=== PATIENT | female | born 1980 | race Caucasian/White ===

== ENCOUNTER 2016-07-09 17:05 | Outpatient (CLI) | payer MEDICAID ==
--- NOTE | 2016-07-10 11:10 | Ultrasound Report ---
PELVIC ULTRASOUND: 07/09/2016 CLINICAL INDICATION: Irregular cycles, cramping, IUD. COMPARISON: 10/28/2012 TECHNIQUE: Transabdominal pelvic ultrasound performed for global evaluation. Transvaginal pelvic ul trasound performed for detailed evaluation. Real-time scanning performed and static images obtained. FINDINGS: The uterus is anteverted, measuring 8.6 x 5.0 x 4.0 cm. The endometrial echo complex yuridia ures 5 mm. An IUD is noted in the endometrial canal. There are two leiomyomas present, fundal subse jojo measuring 2.0 x 1.5 x 0.9 cm, and right posterior subserosal measuring 1.0 x 0.9 x 0.6 cm. No submucosal leiomyoma is seen. The right ovary measures 2.5 x 2.3 x 1.4 cm, and appears unremarkable. The left ovary measures 3.8 x 2.4 x 1.6 cm, and contains a 2.1 cm cyst. No free fluid is present. IMPRESSION: SUBSEROSAL LEIOMYOMAS, WITHOUT PEDUNCULATION. IUD IN THE EXPECTED LOCATION. A 2.1 CM F OLLICLE IN THE LEFT OVARY. JOB #: [id number] EXT JOB #:[id number]
== END 2016-07-09 17:06 | disposition home or self-care (01) ==
LOC: DI 17:05
PROVIDERS: ATTEND Nurse Practitioner Obstetrics & Gynecology
DX: D25.2 Subserosal leiomyoma of uterus (principal); Z97.5 Presence of (intrauterine) contraceptive device
CPT/HCPCS: 76830; 76856

== ENCOUNTER 2016-11-18 09:50 | Outpatient (CLI) | payer MEDICAID ==
[2016-11-18 10:09] LABS: BASOPHILS % (AUTO) 0.6 %; EOSINOPHILS # (AUTO) 0.2 10^3/uL (0.0-0.7); EOSINOPHILS % (AUTO) 2.5 %; HGB - HEMOGLOBIN 13.6 g/dL (12.0-16.0); LYMPHOCYTES # (AUTO) 2.4 10^3/uL (1.5-3.5); LYMPHOCYTES % (AUTO) 32.7 %; MEAN CORPUSCULAR HEMOGLOBIN 33.4 pg (27.0-31.0); MEAN CORPUSCULAR HGB CONC 34.1 g/dL (32.0-36.0); MEAN CORPUSCULAR VOLUME 98.1 fL (81.0-99.0); MONOCYTES # (AUTO) 0.9 10^3/uL (0.0-1.0); MONOCYTES % (AUTO) 12.1 %; NEUTROPHILS # (AUTO) 3.8 10^3/uL (1.5-6.6); NEUTROPHILS % (AUTO) 52.1 %; RED BLOOD COUNT 4.08 10^6/uL (4.20-5.40); UNCORRECTED WHITE BLOOD COUNT 7.4 x10^3/uL; WHITE BLOOD COUNT 7.4 x10^3/uL (4.8-10.8)
[2016-11-18 10:43] LABS: ALBUMIN/GLOBULIN RATIO 1.4 (1.0-2.2); BILIRUBIN,TOTAL 0.7 mg/dL (0.2-1.0); BUN - BLOOD UREA NITROGEN 13 mg/dL (6-20); CALCIUM 9.3 mg/dL (8.5-10.3); CARBON DIOXIDE - CO2 24 mmol/L (21-32); CHLORIDE 102 mmol/L (101-111); CREATININE 0.7 mg/dL (0.4-1.0); GFR - MDRD 94 (>89); GLUCOSE 127 mg/dL (70-100); POTASSIUM 4.4 mmol/L (3.5-5.0); SODIUM 137 mmol/L (135-145); TOTAL PROTEIN 7.5 g/dL (6.7-8.2)
[2016-11-18 10:59] LABS: THYROID STIMULATING HORMONE 1.7 uIU/mL (0.34-5.60)
[2016-11-18 11:05] LABS: PROLACTIN 10.29 ng/mL
== END 2016-11-18 09:51 | disposition home or self-care (01) ==
LOC: LAB 09:50
PROVIDERS: ATTEND Obstetrics & Gynecology
DX: Z13.1 Encounter for screening for diabetes mellitus (principal); R53.83 Other fatigue; D35.2 Benign neoplasm of pituitary gland; N92.1 Excessive and frequent menstruation with irregular cycle
CPT/HCPCS: 36415; 80053; 84146; 84443; 85025

== ENCOUNTER 2016-11-25 11:38 | Outpatient (CLI) | payer OTHER | END 2016-11-25 11:39 | disposition home or self-care (01) | LOC: LAB 11:38 | PROVIDERS: ATTEND Obstetrics & Gynecology | DX: N94.4 Primary dysmenorrhea (principal); N92.6 Irregular menstruation, unspecified | CPT/HCPCS: 36415; 86850; 86900; 86901 ==

== ENCOUNTER 2016-11-27 10:56 | Day surgery (SDC) | payer MEDICAID, OTHER ==
--- NOTE | 2016-11-27 09:17 | PREOP HISTORY & PHYSICAL ---
DATE OF ADMISSION/SURGERY: 11/27/2016 IDENTIFICATION: The patient is a 36-year-old. She is G3, P2, AB1 female. CHIEF COMPLAINT: Menometrorrhagia with dysmenorrhea. HISTORY OF PRESENT ILLNESS: The patient states over the last 3 years she has been having increasing d ifficulty with painful and heavy periods. She has been tried on control pills, Depo-Provera, as well as a Mirena IUD. She states when she has her period she will need to change a pad every 3 hours . She will pass clots accompanying this. She needs to utilize a heating pad and use ibuprofen for her pain. She does have a history of having a mother who has had fibroids in her uterus and she has an u ltrasound, which showed evidence of a fibroid uterus. She does have some mild urge incontinence, whic h is well treated with oxybutynin. She has had a normal Pap smear and she is currently using vasectom y for contraception. PAST MEDICAL HISTORY: Asthma. SURGICAL HISTORY: section. ALLERGIES: NONE KNOWN. CURRENT MEDICATIONS 1. Oxybutynin. 2. Sertraline. 3. Albuterol. HABITS: The patient smokes a pack of cigarettes per day, has been encouraged to cease. She drinks 1-3 cups of coffee per day. She drinks less than 2 glasses of wine per day. SOCIAL HISTORY: The patient is , lives with significant other. She is currently sexually activ e with only 1 partner over the last year. FAMILY HISTORY: Positive for ovarian cancer in maternal grandmother. Father with diabetes, as well as hypercholesterolemia and mother with endometriosis. PHYSICAL EXAMINATION GENERAL: The patient is a well-developed, well-nourished white female. She is no acute distress at t his time. VITAL SIGNS: Blood pressure 122/82, BMI is 25.4. HEENT: Pupils are equal, round. Extraocular muscles are intact. NECK: Thyroid is not palpably enlarged. HEART: Regular rate and rhythm without murmurs. LUNGS: Wong are clear with wheezes secondary to her asthma. ABDOMEN: Soft with evidence of a Pfannenstiel incision from previous section. PELVIC: Normal external genitalia. Vaginal vault shows evidence of good rugation and no obvious cysto ernie or rectoceles at this time. Cervix appears to reside high in the vaginal vault. Internal examina tion uterus is difficult to palpate secondary to abdominal wall thickness. IMPRESSION: Menometrorrhagia with dysmenorrhea. She has failed conservative measures which include bi rth control pills, Depo-Provera, as well as Mirena IUD. PLAN: At this point, she is requesting a hysterectomy. She is aware that should her uterus be removed that she would never be able to have children again and should consider this permanent. Risks and be nefits including those, but not limited to bleeding, infection, injury to pelvic organs, which includ e the uterus, tubes, ovaries, bowel, bladder, and ureters. She is aware of the potential for DVT with PE, as well as postoperative adhesions, which could cause pain, bowel obstruction. JOB #: [id number] EXT JOB #:[id number]
[~2016-11-27 10:56] MED LIST: ceFAZolin 2 GM/50 ML 2 GM/50 ML BAG IV ONE
[2016-11-27 11:17] VITALS: BP 136/88
[2016-11-27] MEDS ORDERED: LACTATED RINGERS 1,000 ML IV ONE ×2 (11:25→16:11)
[2016-11-27 12:46] LABS: HCG UR QUAL NEGATIVE
[2016-11-27] MEDS ORDERED: BUPIVACAINE 0.25%-EPI 1:200000 PF 30 ML VIAL SUBQ ONE ×2 (14:28)
[2016-11-27] MEDS ORDERED: PROPOFOL 200 MG/20 ML VIAL IVP ONE (14:30)
[2016-11-27] MEDS ORDERED: PHENYLEPHRINE 50 MG/5 ML VIAL IV ONE (14:30)
[2016-11-27] MEDS ORDERED: ACETAMINOPHEN 1,000 MG/100 ML 100 ML IV ONE (14:30)
[2016-11-27] MEDS ORDERED: NEOSTIGMINE 1 MG/1 ML 10 ML MDV IVP ONE (14:30)
[2016-11-27] MEDS ORDERED: MIDAZOLAM 2 MG/2 ML VIAL IVP ONE (14:30)
[2016-11-27] MEDS ORDERED: ROCURONIUM 50 MG/5 ML VIAL IVP ONE (14:30)
[2016-11-27] MEDS ORDERED: GLYCOPYRROLATE 1 MG/5 ML VIAL IVP ONE (14:30)
[2016-11-27] MEDS ORDERED: LIDOCAINE-MPF 2% 5 ML VIAL IM ONE (14:30)
[2016-11-27] MEDS ORDERED: fentaNYL 100 MCG/2 ML VIAL IVP ONE (14:30)
[2016-11-27] MEDS ORDERED: KETOROLAC 30 MG/ML VIAL IVP ONE (14:30)
[2016-11-27] MEDS ORDERED: DEXAMETHASONE 4 MG/ML VIAL IVP ONE (14:30)
[2016-11-27] MEDS ORDERED: ONDANSETRON 4 MG/2 ML VIAL IVP ONE (14:30)
[2016-11-27] MEDS ORDERED: METHYLENE BLUE 0.5% 50 MG/10 ML AMPULE IVP ONE (15:10)
[2016-11-27] MEDS ORDERED: BUPIVACAINE 0.25%-EPI 1:200000 PF 10 ML VIAL IM ONE (15:45)
[2016-11-27] MEDS: LORazepam 2 MG/ML SYRINGE ONE ×2 (16:58→17:11)
[2016-11-27] MEDS ORDERED: fentaNYL 100 MCG/2 ML VIAL ONE (17:11)
[2016-11-27] MEDS ORDERED: oxyCODONE 5 MG TABLET ONE (18:29)
[2016-11-27] MEDS ORDERED: NICOTINE 14 MG PATCH TOP ONE (20:39)
[2016-11-27] MEDS ORDERED: ONDANSETRON 4 MG/2 ML VIAL IVP PRN (20:41)
[2016-11-27] MEDS ORDERED: NICOTINE 14 MG PATCH TOP SCH (20:45)
[2016-11-27] MEDS: LACTATED RINGERS 1,000 ML IV SCH (22:20)
[2016-11-27] MEDS: oxyCODONE 5 MG TABLET PO PRN (22:22)
[2016-11-27] MEDS ORDERED: KETOROLAC 30 MG/ML VIAL IVP PRN (22:30)
--- NOTE | 2016-11-28 02:04 | OPERATIVE REPORT ---
DATE OF SURGERY: 11/27/2016 00:00:00 PREOPERATIVE DIAGNOSES: Menorrhagia, metrorrhagia, fibroid uterus. POSTOPERATIVE DIAGNOSIS: Menorrhagia, metrorrhagia, fibroid uterus. PROCEDURE: Laparoscopic-assisted vaginal hysterectomy and bilateral salpingectomy. SURGEON: Harsha Croft MD. OPEN TENTER OPERATOR: Dr. Harsha Holliday. ANESTHESIA: General via endotracheal tube, Pablo Bonilla CRNA. FINDINGS: Large uterus with multiple subserosal fibroids. The tubes appeared to be normal bilaterally as well as the ovaries. ESTIMATED BLOOD LOSS: 100 mL. IV FLUIDS: 1400 mL. PROCEDURE: Following adequate endotracheal anesthesia, the patient was placed in a dorsal lithotomy position in [facility]. She was then prepped and draped in the usual fashion. A timeout was performed, at which time the patient was identified, as well as concerns. The procedure was then commenced. A Mann catheter was placed under sterile condition, a speculum was placed in the vagina , cervix visualized, grasped with single-toothed tenaculum anteriorly and sounded to 8 cm, dilated to a size 8 mm dilator. A Vesicare uterine manipulator was placed in the uterus. The balloon was inflated and then the cups were then pushed up into the fornices of the vagina. 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 Pneumoperitoneum was created. There was no evidence of any injury at the site of insertion. Two ports were placed, both in the left and the right lower quadrants, 5 mm, both under direct visualization following the skin incision as well as local anesthetic. The uterus was visualized, identified and photographs were taken. The right fallopian tube was grasped at its fimbriated end and the mesosalpinx was then cauterized and then divided utilizing the LigaSure. The round ligament was then doubly cauterized and transected. The utero-ovarian ligament was likewise doubly cauterized and then transected. Evidence of good hemostasis was noted. The broad ligament was then cauterized and transected along the lateral aspect of the uterus. This was carried down to about the level of the internal os of the cervix. Then the anterior leaf of the broad ligament was opened and the bladder flap was developed utilizing the LigaSure. Good hemostasis was observed. The uterine vessels on the right hand side were cauterized and transected as well as the posterior peritoneum on the right hand side. The left hand tube was treated in identical fashion. The mesosalpinx was cauterized, transected utilizing LigaSure all the way down to the cornua of the round ligament as well was the utero-ovarian ligament was cauterized and transected. The anterior leaf of the broad ligament was opened, cauterized and transected all the way down to the internal os of the cervix and then connected with the incision on the right hand side. The posterior leaf of the broad ligament was cauterized, transected all the way down to the uterine vessels. These were visualized, doubly cauterized and then transected. The bladder was then pushed off the lower uterine segment and there was evidence of adequate hemostasis at this point. At this point, the attention was turned to the vagina. The VCare was removed from the uterus following deflation of the bulb and the cervix was grasped with a thyroid Fabiola clamp both anterior and posteriorly, and the cervix was circumscribed utilizing electrocautery. The bladder flap was developed and with blunt and sharp dissection, it was freed from the lower uterine segment until the peritoneum was entered. This was identified with peritoneal surfaces. The posterior cul-de-sac was then likewise developed using Webb scissors and then entered and a long billed speculum was placed. The transverse cervical ligament was cross clamped bilaterally, divided and ligated with Blanca stitches of #0 Vicryl. This was carried on the left hand side up to the previous surgical opening from the laparoscopy. There was some bleeding noted on the right hand side. This was treated with [id number]-lyadzb of #0 Vicryl. The left hand side was treated in identical fashion. The uterosacral ligaments were cross clamped, divided using Webb scissors and ligated with Blanca stitches of #0 Vicryl. This was carried up to the incision from the laparoscopic area. The uterus was then removed, and there was evidence of bleeding from the right uterosacral ligament. This was treated with ubcmdo-wj-xyhaid with evidence of good hemostasis and following this, a Kaye suture was placed utilizing 0 Vicryl starting at the posterior vagina on the left hand side included the left transverse cervical ligament traversed high across the cul-de-sac including right uterosacral ligament and then exiting the vagina. The area on the right hand side was inspected and no further bleeding was noted, so the apex of vagina was closed using smhudd-tj-icexee of #0 Vicryl because of her smoking. The Kaye suture was then pulled snug and the vagina was pulled up in the vaginal vault. There was no evidence of any further bleeding. A cystoscopy was performed and there was evidence of good urine flowing from both ureteral orifices. The electric freight car operator's gloves and changed and then the laparoscope was reintroduced, and there was no evidence of any bleeding at the apex of the vagina or the lower portion of the pelvis. The pelvis was irrigated and then the CO2 was allowed to escape. The incisions were closed utilizing subcuticular 4-0 Monocryl with Dermabond closure. The patient tolerated the procedure well, was taken to recovery in stable condition. Sponge and needle counts were correct. JOB #: [id number] EXT JOB #:[id number] CECILLE
[2016-11-28] MEDS: oxyCODONE 5 MG TABLET PO PRN ×2 (03:33→07:47)
[2016-11-28] MEDS: LACTATED RINGERS 1,000 ML IV SCH (08:37)
== END 2016-11-28 09:25 | disposition home or self-care (01) ==
LOC: SDS 10:56 → OBS 16:40 → SDS 11-28 09:25
PROVIDERS: ATTEND Obstetrics & Gynecology
PROC: 0UTC7ZZ Resection of Cervix, Via Natural or Artificial Opening (ICD-10-PCS; 2016-11-27)
PROC: 0UT7FZZ Resection of Bilateral Fallopian Tubes, Via Natural or Artificial Opening With Percutaneous Endoscopic Assistance (ICD-10-PCS; 2016-11-27)
PROC: 0UT9FZZ Resection of Uterus, Via Natural or Artificial Opening With Percutaneous Endoscopic Assistance (ICD-10-PCS; principal; 2016-11-27 12:00)
DX: D25.1 Intramural leiomyoma of uterus (principal); D25.0 Submucous leiomyoma of uterus; D25.2 Subserosal leiomyoma of uterus; J45.909 Unspecified asthma, uncomplicated; F17.210 Nicotine dependence, cigarettes, uncomplicated
CPT/HCPCS: 58554; 81025; A9270; J0131; J0690; J2060; J7120

== ENCOUNTER 2017-01-27 09:33 | Outpatient (CLI) | payer OTHER ==
[~2017-01-27 09:33] MED LIST changes: +GADOBUTROL 7.5 MMOL/7.5 ML VIAL ONE; -ceFAZolin 2 GM/50 ML 2 GM/50 ML BAG IV ONE
[2017-01-27] MEDS ORDERED: GADOBUTROL 7.5 MMOL/7.5 ML VIAL IVP ONE (10:33)
--- NOTE | 2017-01-27 22:12 | MRI Report ---
MRI BRAIN WITHOUT AND WITH CONTRAST INDICATION: 36-year-old female with history of pituitary adenoma. Please assess in follow-up. TECHNIQUE: 1. T1 sagittal and fat-saturated T2 coronal. 2. Axial FLAIR, T2* and DWI. 3. Thin slice, T1 and T2 coronal (sella). 4. 6 mL of IV Gadavist. Dynamic pituitary imaging was performed in the coronal plane. In addition, th in slice, static, postcontrast T1 sagittal and coronal sequences were obtained through the sella. A r outine T1 3-D axial sequence has been obtained through the brain. COMPARISON: 07/22/2011. FINDINGS: Pituitary/sella Best demonstrated on dynamic phase sequence is a region of mildly delayed enhancement in the left lat eral aspect of the pituitary. The margins are ill-defined (see image 24 of series 1101). Grossly this lesion appears to measure about 2.3 mm maximal transverse by roughly 3.8 mm maximal craniocaudad. It is difficult to identify a definite, corresponding abnormality on the static, postcontrast sequences . However, again demonstrated is asymmetry in the contour of the pituitary gland with upward convexit y, laterally on the left, effectively confirming the presence of an intrapituitary mass on the left. The infundibulum is minimally displaced to the right. No invasion of the left cavernous sinus is demo nstrated. No suprasellar mass is seen. The optic chiasm is normal and noncompressed. Brain Ventricular size is normal. Signal intensity of cortex and white matter appears normal. There appear to be flow voids for the main intracranial arteries. No abnormal diffusion restriction is demonstrate d. No evidence of acute or chronic hemorrhage on T2* GRE sequence. No enhancing space-occupying mass lesion. No pathologic meningeal or cranial nerve enhancement. There is normal intravascular contrast enhancement in the dural venous sinuses and deep venous structures. This effectively excludes the pos sibility of venous thrombosis. A mucous retention cyst is identified in the left maxillary sinus. Mucosal thickening is seen scatter ed throughout the maxillary and ethmoid sinuses. No air-fluid levels are seen in the paranasal sinuse s. No mastoid or middle ear effusion. 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 No obvious interval g rowth when compared to previous study 07/22/2011. Imaging of the pituitary and parasellar region is otherwise unremarkable. Referring Provider Line: [phone] SITE ID: [id number]
== END 2017-01-27 09:34 | disposition home or self-care (01) ==
LOC: DI 09:33
PROVIDERS: ATTEND Nurse Practitioner Family
DX: D35.2 Benign neoplasm of pituitary gland (principal)
CPT/HCPCS: 70553; A9585

== ENCOUNTER 2017-09-09 17:05 | Emergency (ER) | payer SELFPAY ==
[2017-09-09 17:24] VITALS: BP 129/89
== END 2017-09-09 18:00 | disposition left against medical advice (07) ==
LOC: ED 17:05
DX: Z53.21 Procedure and treatment not carried out due to patient leaving prior to being seen by health care provider (principal)

== ENCOUNTER 2017-09-11 12:34 | Emergency (ER) | payer SELFPAY ==
[2017-09-11] MEDS ORDERED: HYDROcod/ACETAM 5/325 MG TABLET PO STA (13:35)
--- NOTE | 2017-09-11 13:37 | ED Physician Documentation ---
PD HPI BACK PAIN - Stated complaint Stated Complaint: BACK PX - Chief complaint Chief Complaint: Back Pain - History obtained from History obtained from: Patient - History of Present Illness Timing - onset: Other (She woke up with back pain 2 weeks ago, it is in the left upper thoracic area. It started after a long car trip to [place]. She does not have any shortness of breath with it but she does have mild left anterior chest pain that has been constant in that timeframe. She denies any pedal edema. She denies weakness, numbness, or tingling in the extremities, but does note incontinence, but that is not new since the back pain started and she has seen a urologist for that issue. There is no saddle anesthesia or fevers. She has tried ibuprofen which is modestly effective.) Review of Systems Constitutional: denies: Fever, Chills Cardiac: reports: Chest pain / pressure. 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 - Present Medications Home Medications: Ambulatory Orders Medication Instructions Recorded Confirmed LORazepam [Ativan] 1 mg PO DAILY 12/23/15 11/27/16 Sertraline [Zoloft] 100 mg PO BID 12/23/15 11/27/16 Meclizine HCl [Motion Sickness 25 mg PO DAILY PRN 11/26/16 11/27/16 Relief] Albuterol Sulfate [Proair Hfa 1 inhaler IH DAILY 11/27/16 11/27/16 Inhaler] Oxybutynin [Ditropan] 5 mg PO DAILY 11/27/16 11/27/16 HYDROcod/ACETAM 5/325 [[place] 5/325] 1 - 2 ea PO Q6H PRN #15 tablet 09/11/17 Ibuprofen [Motrin] 800 mg PO Q8H PRN #30 tablet 09/11/17 Lidocaine Patch 5% [Lidoderm Patch] 1 each TOP DAILY #10 patch 09/11/17 - Allergies Allergies/Adverse Reactions: Allergies Allergy/AdvReac Type Severity Reaction Status Date / Time No Known Drug Allergies Allergy Verified 09/11/17 12:45 - Social History Does the pt smoke?: Yes Smoking Status: Current every day smoker Does the pt drink ETOH?: Yes Does the pt have substance abuse?: Yes Substance Use and Type: Marijuana - Immunizations Immunizations are current?: Yes Immunizations: TDAP >10years/unknown - POLST Patient has POLST: No PD ED PE NORMAL - Vitals Vital signs reviewed: Yes - General General: Alert and oriented X 3, No acute distress - HEENT HEENT: PERRL, EOMI - Neck Neck: Supple, no meningeal sign, No bony TTP - Cardiac Cardiac: RRR, No murmur - Respiratory Respiratory: No respiratory distress, Clear bilaterally - Abdomen Abdomen: Non tender - Back Back: No spinal TTP, Other (She is muscular tenderness to the left of the mid and upper thoracic spine, The patient has equal and normal Achilles and patellar reflexes bilaterally. Normal sensation in all areas of the legs. Patient denies saddle anesthesia. Normal strength in flexion-extension at the ankles, knees, and flexion of the hips.) - Neuro Neuro: Alert and oriented X 3, Normal speech Results - Vitals Vitals: Vital Signs - 24 hr 09/11/17 09/11/17 12:41 14:31 Temperature 36 C L 37.6 C H Heart Rate 88 72 Respiratory 18 16 Rate Blood Pressure 138/102 H 132/82 H O2 Saturation 97 97 Oxygen O2 Source Room air - EKG (time done) 1343 Rate: Rate (enter#) (68) Rhythm: NSR [place]: Normal Intervals: Normal [place] QRS: Normal Ischemia: Normal ST segments Computer interpretation: Agree with computer - Labs Labs: Laboratory Tests 09/11/17 09/11/17 09/11/17 14:15 14:15 14:15 WBC 8.7 RBC 4.16 L Hgb 13.8 Hct 39.8 MCV 95.6 MCH 33.2 H MCHC 34.7 RDW 11.9 L Plt Count 292 MPV 7.8 L Neut # (Auto) 5.8 Lymph # (Auto) 2.1 [place] # (Auto) 0.7 Eos # (Auto) 0.1 Baso # (Auto) 0.1 Absolute Nucleated RBC 0.00 Nucleated RBC % 0.0 D-Dimer 279.8 H Sodium 136 Potassium 3.9 Chloride 99 L Carbon Dioxide 26 Anion Gap 11.0 BUN 9 Creatinine 0.7 Estimated GFR (MDRD) 94 Glucose 103 H Calcium 9.2 Total Bilirubin 0.4 AST 31 ALT 33 Alkaline Phosphatase 51 Troponin I Total Protein 7.7 Albumin 4.4 Globulin 3.3 Albumin/Globulin Ratio 1.3 Lipase 29 09/11/17 14:15 WBC RBC Hgb Hct MCV MCH MCHC RDW Plt Count MPV Neut # (Auto) Lymph # (Auto) [place] # (Auto) Eos # (Auto) Baso # (Auto) Absolute Nucleated RBC Nucleated RBC % D-Dimer Sodium Potassium Chloride Carbon Dioxide Anion Gap BUN Creatinine Estimated GFR (MDRD) Glucose Calcium Total Bilirubin AST ALT Alkaline Phosphatase Troponin I < 0.04 Total Protein Albumin Globulin Albumin/Globulin Ratio Lipase - Rads (name of study) 2v chest Radiology: EMP read contemporaneously (normal) PD MEDICAL DECISION MAKING - ED course ED course: 37-year-old woman with 2 weeks of constant back pain that seems muscular on examination, differential would also include core issue including PE given recent car trip, her d-dimer flags is high but most authorities use 500 as a cut off so I consider this to be negative. - Sepsis Event Vital Signs: Vital Signs - 24 hr 09/11/17 09/11/17 12:41 14:31 Temperature 36 C L 37.6 C H Heart Rate 88 72 Respiratory 18 16 Rate Blood Pressure 138/102 H 132/82 H O2 Saturation 97 97 Oxygen O2 Source Room air Departure - Departure Disposition: 01 Home, Self Care Clinical Impression: Back pain Qualifiers: Back pain location: thoracic back pain Chronicity: acute Back pain laterality: left Qualified Code(s): M54.6 - Pain in thoracic spine Condition: Good Record reviewed to determine appropriate education?: Yes Instructions: ED Neck Back Pain General Prescriptions: HYDROcod/ACETAM 5/325 [[place] 5/325] 1 - 2 ea PO Q6H PRN #15 tablet PRN Reason: Pain Ibuprofen [Motrin] 800 mg PO Q8H PRN #30 tablet PRN Reason: PAIN &/OR FEVER Lidocaine Patch 5% [Lidoderm Patch] 1 each TOP DAILY #10 patch Comments: Your blood pressure was elevated today on check into the emergency department. This does not mean that you have hypertension, it is a common phenomenon to come to the emergency department and have elevated blood pressure. I recommend that you see your primary care physician within the week to have it rechecked when you are feeling better. Do not drink or drive while taking narcotic pain medication. Note that many narcotic pain relievers also contain Tylenol/acetaminophen. Please ensure that your total dose of acetaminophen from all sources does not exceed 3 g (3000 mg) per day. You may get constipated while on this medication. Take a stool softener such as Colace twice a day while you are on it. Also add an cucl-zxk-yhycfhf laxative such as senna or MiraLAX on any day that you do not have a bowel movement. If you received a narcotic pain medication or sedative while in the emergency department, do not drive for the next 24 hours. Forms: Activity restrictions
--- NOTE | 2017-09-11 14:09 | XRAY Report ---
Procedure Date: 09/11/2017 Accession Number: [id number] / [id number] Procedure: XR - Chest 2 View X-Ray CPT Code: 21236 FULL RESULT: EXAM: CHEST RADIOGRAPHY EXAM DATE: 09/11/2017 01:57 PM. CLINICAL HISTORY: Chest/back pain. COMPARISON: XR CHEST PA AND LAT 06/17/2011. TECHNIQUE: 2 views. FINDINGS: Lungs/Pleura: No focal opacities evident. No pleural effusion. No pneumothorax. Normal volumes. Mediastinum: Heart and mediastinal contours are unremarkable. Other: No acute osseous abnormality. IMPRESSION: Normal 2-view chest radiography. RADIA
[2017-09-11 14:24] LABS: BASOPHILS # (AUTO) 0.1 10^3/uL (0.0-0.1); EOSINOPHILS # (AUTO) 0.1 10^3/uL (0.0-0.7); EOSINOPHILS % (AUTO) 1.1 %; HGB - HEMOGLOBIN 13.8 g/dL (12.0-16.0); LYMPHOCYTES # (AUTO) 2.1 10^3/uL (1.5-3.5); LYMPHOCYTES % (AUTO) 23.8 %; MEAN CORPUSCULAR HEMOGLOBIN 33.2 pg (27.0-31.0); MEAN CORPUSCULAR HGB CONC 34.7 g/dL (32.0-36.0); MEAN CORPUSCULAR VOLUME 95.6 fL (81.0-99.0); MEAN PLATELET VOLUME 7.8 fL (7.9-10.8); MONOCYTES # (AUTO) 0.7 10^3/uL (0.0-1.0); NEUTROPHILS # (AUTO) 5.8 10^3/uL (1.5-6.6); NEUTROPHILS % (AUTO) 66.1 %; PLT - PLATELET COUNT 292 10^3/uL (130-450); RED BLOOD COUNT 4.16 10^6/uL (4.20-5.40); RED CELL DISTRIBUTION WIDTH 11.9 % (12.0-15.0); WHITE BLOOD COUNT 8.7 x10^3/uL (4.8-10.8)
[2017-09-11 14:32] VITALS: BP 132/82
[2017-09-11 14:36] LABS: ALBUMIN 4.4 g/dL (3.2-5.5); ALBUMIN/GLOBULIN RATIO 1.3 (1.0-2.2); BILIRUBIN,TOTAL 0.4 mg/dL (0.2-1.0); CALCIUM 9.2 mg/dL (8.5-10.3); CREATININE 0.7 mg/dL (0.4-1.0); TOTAL PROTEIN 7.7 g/dL (6.7-8.2)
== END 2017-09-11 14:44 | disposition home or self-care (01) ==
LOC: ED 12:34
DX: M54.6 Pain in thoracic spine (principal); R03.0 Elevated blood-pressure reading, without diagnosis of hypertension; F17.200 Nicotine dependence, unspecified, uncomplicated
CPT/HCPCS: 36415; 71046; 80053; 83690; 84484; 85025; 85379; 93005; 99283; A9270

== ENCOUNTER 2017-11-26 02:15 | Emergency (ER) | payer SELFPAY ==
[2017-11-26 02:44] LABS: BASOPHILS # (AUTO) 0.1 10^3/uL (0.0-0.1); BASOPHILS % (AUTO) 0.9 %; EOSINOPHILS # (AUTO) 0.3 10^3/uL (0.0-0.7); HGB - HEMOGLOBIN 15.8 g/dL (12.0-16.0); LYMPHOCYTES # (AUTO) 4.5 10^3/uL (1.5-3.5); LYMPHOCYTES % (AUTO) 45.6 %; MEAN CORPUSCULAR HGB CONC 34.2 g/dL (32.0-36.0); MEAN CORPUSCULAR VOLUME 96.6 fL (81.0-99.0); MEAN PLATELET VOLUME 8.2 fL (7.9-10.8); MONOCYTES # (AUTO) 0.9 10^3/uL (0.0-1.0); MONOCYTES % (AUTO) 8.6 %; NEUTROPHILS # (AUTO) 4.2 10^3/uL (1.5-6.6); NEUTROPHILS % (AUTO) 41.9 %; PLT - PLATELET COUNT 342 10^3/uL (130-450); RED BLOOD COUNT 4.79 10^6/uL (4.20-5.40); RED CELL DISTRIBUTION WIDTH 12.2 % (12.0-15.0); WHITE BLOOD COUNT 9.9 x10^3/uL (4.8-10.8)
[2017-11-26 02:45] LABS: MUDS CUTOFF CONCENTRATIONS CUTOFF CONC BELOW:
--- NOTE | 2017-11-26 02:50 | ED Physician Documentation ---
PD HPI OVERDOSE - Stated complaint Stated Complaint: POSS OVERDOSE - Chief complaint Chief Complaint: MHE - History obtained from History obtained from: Patient - History of Present Illness Timing - onset: Enter time (23:00), Today Subtance(s) ingested: EtOH, Antidepressent Contributing factors: Depresssed Pain level max: 0 Pain level now: 0 Recently seen: Not recently seen - Additional information Additional information: patient had argument with her daugher (phone conversation, not in person), causing patient to feel depressed. Patient drank alcohol and then took approximately 60 tablets (100mg tablets) of zoloft at approximately 23:00. Review of Systems Cardiac: reports: Reviewed and negative Respiratory: reports: Reviewed and negative GI: reports: Reviewed and negative Neurologic: reports: Reviewed and negative Psychiatric: reports: Depressed. denies: Suicidal (patient admits she took the overdose with intent of self-harm but denies true suicidal intent) PD PAST MEDICAL HISTORY - Past Medical History Respiratory: Pneumonia Psych: Depression - Past Surgical History Past Surgical History: Yes /[employer]: section, Hysterectomy - Present Medications Home Medications: Ambulatory Orders Medication Instructions Recorded Confirmed LORazepam [Ativan] 1 mg PO DAILY 12/23/15 11/27/16 Sertraline [Zoloft] 100 mg PO BID 12/23/15 11/27/16 Meclizine HCl [Motion Sickness 25 mg PO DAILY PRN 11/26/16 11/27/16 Relief] Albuterol Sulfate [Proair Hfa 1 inhaler IH DAILY 11/27/16 11/27/16 Inhaler] Oxybutynin [Ditropan] 5 mg PO DAILY 11/27/16 11/27/16 HYDROcod/ACETAM 5/325 [[place] 5/325] 1 - 2 ea PO Q6H PRN #15 tablet 09/11/17 Ibuprofen [Motrin] 800 mg PO Q8H PRN #30 tablet 09/11/17 Lidocaine Patch 5% [Lidoderm Patch] 1 each TOP DAILY #10 patch 09/11/17 - Allergies Allergies/Adverse Reactions: Allergies Allergy/AdvReac Type Severity Reaction Status Date / Time No Known Drug Allergies Allergy Verified 09/11/17 12:45 - Social History Does the pt smoke?: Yes Smoking Status: Current every day smoker Does the pt drink ETOH?: Yes Does the pt have substance abuse?: Yes - Immunizations Immunizations are current?: Yes Immunizations: TDAP >10years/unknown - POLST Patient has POLST: No PD ED PE NORMAL - Vitals Vital signs reviewed: Yes - General General: Alert and oriented X 3, Well developed/nourished, Other (tearful during H+P but otherwise no NAD) - HEENT HEENT: PERRL, EOMI, Moist mucous membranes - Cardiac Cardiac: RRR, No murmur - Respiratory Respiratory: No respiratory distress, Clear bilaterally - Abdomen Abdomen: Normal bowel sounds, Soft, Non tender - Derm Derm: Normal color, Warm and dry - Neuro Neuro: Alert and oriented X 3, 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, No motor deficit, No sensory deficit, Normal speech Eye Opening: Spontaneous Motor: Obeys Commands Verbal: Oriented GCS Score: 15 Results - Vitals Vitals: Vital Signs - 24 hr 11/26/17 11/26/17 11/26/17 02:15 03:30 04:54 Temperature 36.9 C Heart Rate 107 H 96 101 H Respiratory 18 18 16 Rate Blood Pressure 130/96 H 121/80 O2 Saturation 95 94 Oxygen O2 Source Room air - Labs Labs: Laboratory Tests 11/26/17 11/26/17 11/26/17 02:30 02:30 02:35 WBC RBC Hgb Hct MCV MCH MCHC RDW Plt Count MPV Neut # (Auto) Lymph # (Auto) [place] # (Auto) Eos # (Auto) Baso # (Auto) Absolute Nucleated RBC Nucleated RBC % Sodium 142 Potassium 3.9 Chloride 105 Carbon Dioxide 24 Anion Gap 13.0 BUN 9 Creatinine 0.6 Estimated GFR (MDRD) 112 Glucose 108 H Calcium 9.4 Ur Specific [place] >=1.030 H Urine HCG, Qual NEGATIVE Salicylates < 6.0 Urine Opiates Screen NEGATIVE Ur Oxycodone Screen NEGATIVE Urine Methadone Screen NEGATIVE Ur Propoxyphene Screen NEGATIVE Acetaminophen < 10 L Ur Barbiturates Screen NEGATIVE Ur Tricyclics Screen NEGATIVE Ur Phencyclidine Scrn NEGATIVE Ur Amphetamine Screen POSITIVE H U Methamphetamines Scrn NEGATIVE U Benzodiazepines Scrn POSITIVE H Urine Cocaine Screen NEGATIVE U Cannabinoids Screen NEGATIVE Ethyl Alcohol 274.5 11/26/17 02:35 WBC 9.9 RBC 4.79 Hgb 15.8 Hct 46.3 MCV 96.6 MCH 33.0 H MCHC 34.2 RDW 12.2 Plt Count 342 MPV 8.2 Neut # (Auto) 4.2 Lymph # (Auto) 4.5 H Castro # (Auto) 0.9 Eos # (Auto) 0.3 Baso # (Auto) 0.1 Absolute Nucleated RBC 0.01 Nucleated RBC % 0.1 Sodium Potassium Chloride Carbon Dioxide Anion Gap BUN Creatinine Estimated GFR (MDRD) Glucose Calcium Ur Specific [place] Urine HCG, Qual Salicylates Urine Opiates Screen Ur Oxycodone Screen Urine Methadone Screen Ur Propoxyphene Screen Acetaminophen Ur Barbiturates Screen Ur Tricyclics Screen Ur Phencyclidine Scrn Ur Amphetamine Screen U Methamphetamines Scrn U Benzodiazepines Scrn Urine Cocaine Screen U Cannabinoids Screen Ethyl Alcohol PD MEDICAL DECISION MAKING - ED course Complexity details: reviewed old records, reviewed results, re-evaluated patient, considered differential, d/w patient ED course: Patient held in ED for SW evaluation in AM, signed out to Dr. Doran pending SW evaluation. Of note, patient was evaluated in this ED 2015 with very similar presentation.
[2017-11-26 02:55] LABS: ACETAMINOPHEN < 10 ug/mL (10-30); BUN - BLOOD UREA NITROGEN 9 mg/dL (6-20); CALCIUM 9.4 mg/dL (8.5-10.3); CARBON DIOXIDE - CO2 24 mmol/L (21-32); CHLORIDE 105 mmol/L (101-111); CREATININE 0.6 mg/dL (0.4-1.0); GFR - MDRD 112 (>89); GLUCOSE 108 mg/dL (70-100); SALICYLATE < 6.0 mg/dL; SODIUM 142 mmol/L (135-145)
[2017-11-26 02:56] LABS: HCG UR QUAL NEGATIVE
[2017-11-26] MEDS ORDERED: IPRATROPIUM/ALBUTEROL 3 ML NEB INH STA (02:59)
[2017-11-26 03:01] LABS: AMPHETAMINE SCREEN,URINE POSITIVE (NEGATIVE); BENZODIAZEPINES SCREEN, URINE POSITIVE (NEGATIVE); COCAINE SCREEN URINE NEGATIVE (NEGATIVE); METHADONE SCREEN, URINE NEGATIVE (NEGATIVE); METHAMPHETAMINES SCREEN, URINE NEGATIVE (NEGATIVE); OPIATE SCREEN, URINE NEGATIVE (NEGATIVE); OXYCODONE SCREEN, URINE NEGATIVE (NEGATIVE); PROPOXYPHENE SCREEN, URINE NEGATIVE (NEGATIVE); TRICYCLIC ANTIDEPRESSANT,URINE NEGATIVE (NEGATIVE)
--- NOTE | 2017-11-26 13:42 | ED Physician Documentation ---
PD HPI OVERDOSE - Stated complaint Stated Complaint: MHE/SI - Chief complaint Chief Complaint: MHE - History obtained from History obtained from: Patient - History of Present Illness Timing - onset: Last night Subtance(s) ingested: EtOH, Other (zoloft) Associated symptoms: Altered mental status, Agitated Contributing factors: Depresssed Similar symptoms before: Diagnosis (depression with SI) Recently seen: Not recently seen - Additional information Additional information: 37-year-old female with history of chronic endogenous depression is on some Zoloft. Last night she took a large number of Zoloft over a period of time and was consuming alcohol as well. She denies suicidal ideation this morning and states that she is depressed. She also indicates that she has had no significant trouble with alcohol withdrawal previously. She states that she has withdrawn slowly over time and that she has gone 3 days without troubles. She has gone a month previously after tapering. Review of Systems Constitutional: denies: Fever Cardiac: denies: Chest pain / pressure, Palpitations Respiratory: denies: Dyspnea, Cough GI: denies: Abdominal Pain : denies: Dysuria, Frequency Skin: denies: Rash Musculoskeletal: denies: Neck pain, Back pain, Extremity pain Neurologic: denies: Generalized weakness, Focal weakness, Numbness PD PAST MEDICAL HISTORY - Past Medical History Respiratory: Pneumonia Psych: Depression - Past Surgical History Past Surgical History: Yes /[employer]: section, Hysterectomy - Present Medications Home Medications: Ambulatory Orders Medication Instructions Recorded Confirmed LORazepam [Ativan] 1 mg PO DAILY 12/23/15 11/27/16 Sertraline [Zoloft] 100 mg PO BID 12/23/15 11/27/16 Meclizine HCl [Motion Sickness 25 mg PO DAILY PRN 11/26/16 11/27/16 Relief] Albuterol Sulfate [Proair Hfa 1 inhaler IH DAILY 11/27/16 11/27/16 Inhaler] Oxybutynin [Ditropan] 5 mg PO DAILY 11/27/16 11/27/16 HYDROcod/ACETAM 5/325 [[place] 5/325] 1 - 2 ea PO Q6H PRN #15 tablet 09/11/17 Ibuprofen [Motrin] 800 mg PO Q8H PRN #30 tablet 09/11/17 Lidocaine Patch 5% [Lidoderm Patch] 1 each TOP DAILY #10 patch 09/11/17 LORazepam [Ativan] 1 mg PO Q6H PRN #20 tablet 11/26/17 - Allergies Allergies/Adverse Reactions: Allergies Allergy/AdvReac Type Severity Reaction Status Date / Time No Known Drug Allergies Allergy Verified 09/11/17 12:45 - Social History Does the pt smoke?: Yes Smoking Status: Current every day smoker Does the pt drink ETOH?: Yes Does the pt have substance abuse?: Yes - Immunizations Immunizations are current?: Yes Immunizations: TDAP >10years/unknown - POLST Patient has POLST: No PD ED PE NORMAL - Vitals Vital signs reviewed: Yes (tachy and hypertensive ) - General General: Alert and oriented X 3, No acute distress, Well developed/nourished, Other (teary eyed 37 y/o female appears depressed. 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, No motor deficit, No sensory deficit, Normal speech Eye Opening: Spontaneous Motor: Obeys Commands Verbal: Oriented GCS Score: 15 - Psych Psych: Normal mood, Normal affect Results - Vitals Vitals: Vital Signs - 24 hr 11/26/17 11/26/17 11/26/17 02:15 03:30 04:54 Temperature 36.9 C Heart Rate 107 H 96 101 H Respiratory 18 18 16 Rate Blood Pressure 130/96 H 121/80 O2 Saturation 95 94 11/26/17 11:43 Temperature Heart Rate 77 Respiratory 12 Rate Blood Pressure 114/79 O2 Saturation 95 Oxygen O2 Source Room air - Labs Labs: Laboratory Tests 11/26/17 11/26/17 11/26/17 02:30 02:30 02:35 WBC RBC Hgb Hct MCV MCH MCHC RDW Plt Count MPV Neut # (Auto) Lymph # (Auto) [place] # (Auto) Eos # (Auto) Baso # (Auto) Absolute Nucleated RBC Nucleated RBC % Sodium 142 Potassium 3.9 Chloride 105 Carbon Dioxide 24 Anion Gap 13.0 BUN 9 Creatinine 0.6 Estimated GFR (MDRD) 112 Glucose 108 H Calcium 9.4 Ur Specific [place] >=1.030 H Urine HCG, Qual NEGATIVE Salicylates < 6.0 Urine Opiates Screen NEGATIVE Ur Oxycodone Screen NEGATIVE Urine Methadone Screen NEGATIVE Ur Propoxyphene Screen NEGATIVE Acetaminophen < 10 L Ur Barbiturates Screen NEGATIVE Ur Tricyclics Screen NEGATIVE Ur Phencyclidine Scrn NEGATIVE Ur Amphetamine Screen POSITIVE H U Methamphetamines Scrn NEGATIVE U Benzodiazepines Scrn POSITIVE H Urine Cocaine Screen NEGATIVE U Cannabinoids Screen NEGATIVE Ethyl Alcohol 274.5 11/26/17 11/26/17 02:35 10:26 WBC 9.9 RBC 4.79 Hgb 15.8 Hct 46.3 MCV 96.6 MCH 33.0 H MCHC 34.2 RDW 12.2 Plt Count 342 MPV 8.2 Neut # (Auto) 4.2 Lymph # (Auto) 4.5 H [place] # (Auto) 0.9 Eos # (Auto) 0.3 Baso # (Auto) 0.1 Absolute Nucleated RBC 0.01 Nucleated RBC % 0.1 Sodium Potassium Chloride Carbon Dioxide Anion Gap BUN Creatinine Estimated GFR (MDRD) Glucose Calcium Ur Specific [place] Urine HCG, Qual Salicylates Urine Opiates Screen Ur Oxycodone Screen Urine Methadone Screen Ur Propoxyphene Screen Acetaminophen Ur Barbiturates Screen Ur Tricyclics Screen Ur Phencyclidine Scrn Ur Amphetamine Screen U Methamphetamines Scrn U Benzodiazepines Scrn Urine Cocaine Screen U Cannabinoids Screen Ethyl Alcohol 28.7 PD MEDICAL DECISION MAKING - ED course Complexity details: reviewed old records, reviewed results, re-evaluated patient, considered differential, d/w patient ED course: 37-year-old female with history of depression has taken an overdose of Zoloft last night which is nontoxic. She emergency department and a repeat blood alcohol is 27. The rn social work is consulted in the case and is able to make arrangements for the patient to follow-up with [facility] [place] tomorrow. I did discuss alcohol withdrawal with the patient in it does appear that she will be okay with the withdrawal today. I have offered to provide a prescription for some benzodiazepine and she accepts the offer. Departure - Departure Disposition: 01 Home, Self Care Clinical Impression: Alcoholic intoxication Qualifiers: Complication of substance-induced condition: with unspecified complication Qualified Code(s): F10.929 - Alcohol use, unspecified with intoxication, unspecified Depression Qualifiers: Depression Type: major depressive disorder Major depression recurrence: recurrent Active/Remission status: currently active Major depression episode severity: moderate Qualified Code(s): F33.1 - Major depressive disorder, recurrent, moderate Drug overdose Qualifiers: Encounter type: initial encounter Injury intent: undetermined intent Qualified Code(s): T50.904A - Poisoning by unspecified drugs, medicaments and biological substances, undetermined, initial encounter Condition: Stable Instructions: ED Alcohol Intoxication, ED Depression, ED Stress React, ED Overdose Intentional, ED Withdrawal Alcohol Follow-Up: Sierra Giron ARNP [Primary Care Provider] - Prescriptions: LORazepam [Ativan] 1 mg PO Q6H PRN #20 tablet PRN Reason: withdrawal symptoms
[2017-11-26 13:56] VITALS: BP 123/82
== END 2017-11-26 14:21 | disposition home or self-care (01) ==
LOC: ED 02:15
DX: F10.929 Alcohol use, unspecified with intoxication, unspecified (principal); F33.1 Major depressive disorder, recurrent, moderate; T51.0X2A Toxic effect of ethanol, intentional self-harm, initial encounter; T43.222A Poisoning by selective serotonin reuptake inhibitors, intentional self-harm, initial encounter; F17.200 Nicotine dependence, unspecified, uncomplicated
CPT/HCPCS: 36415; 80048; 80306; 80307; 80320; 80329; 81025; 85025; 94640; 99283; 99284

== ENCOUNTER 2020-06-14 13:01 | Outpatient (CLI) | payer OTHER ==
--- NOTE | 2020-06-15 12:20 | Mammography Report ---
BILATERAL DIGITAL SCREENING MAMMOGRAM 3D/2D: 06/14/2020 CLINICAL: Baseline exam. Routine screening. No prior exams were available for comparison. The tissue of both breasts is heterogeneously dense. T his may lower the sensitivity of mammography. There is a 0.9 cm oval equal density focal asymmetry in the right breast at 11 o'clock posterior dept h. There is a 0.7 cm oval equal density focal asymmetry in the left breast at 8 o'clock middle depth. No other significant masses or calcifications are seen in either breast. IMPRESSION: INCOMPLETE: NEEDS ADDITIONAL IMAGING EVALUATION The 0.9 cm oval equal density focal asymmetry in the right breast at 11 o'clock posterior depth resem bles a cyst and is indeterminate. Additional views with possible ultrasound are recommended. The 0.7 cm oval equal density focal asymmetry in the left breast at 8 o'clock middle depth resembles a cyst and is indeterminate. Additional views with possible ultrasound are recommended. This exam was interpreted at Station ID: [id number]. NOTE: For mammograms, a report in lay terms will be sent to the patient. Approximately 15% of breast malignancies will not be visualized mammographically. In the management of a palpable breast mass, a negative mammogram must not discourage biopsy of a clinically suspicious lesion. Electronically Signed By: Sarabjit Argueta M.D. aty/:06/14/2020 15:11:06 ACR BI-RADS Category 0: Incomplete 3340F PARENCHYMAL PATTERN: (D) - The breast(s) demonstrate(s) heterogeneously dense fibroglandular parenchy ma. BI-RADS CATEGORY: (0) - 0 Mammo and [place] [id number] Immediate follow-up LATERALITY: (B)
== END 2020-06-14 13:02 | disposition home or self-care (01) ==
LOC: DI 13:01
PROVIDERS: ATTEND Physician Assistant Medical
DX: Z12.31 Encounter for screening mammogram for malignant neoplasm of breast (principal); N64.89 Other specified disorders of breast

== ENCOUNTER 2020-07-26 08:14 | Outpatient (CLI) | payer BC ==
--- NOTE | 2020-07-27 11:59 | Ultrasound Report ---
LIMITED ULTRASOUND OF RIGHT BREAST: 07/26/2020 CLINICAL: Patient returns today to evaluate a focal asymmetry in the right breast. Comparison is made to exams dated: 07/26/2020 mammogram and 06/14/2020 mammogram - [facility]. Color flow and real-time ultrasound of the right breast 11 o'clock region were performed. Rogers scale images of the real-time examination were reviewed. There is a 0.8 cm x 0.5 cm x 0.8 cm oval fibroadenoma with a circumscribed margin in the right breast at 11 o'clock posterior depth. This oval fibroadenoma is hypoechoic with posterior acoustic enhance ment. IMPRESSION: PROBABLY BENIGN The 0.8 cm x 0.5 cm x 0.8 cm oval fibroadenoma in the right breast is probably benign. A follow-up ultrasound in 6 months is recommended to demonstrate stability. This exam was interpreted at Station ID: [id number]. Electronically Signed By: Temo Charlton acr/ev:07/26/2020 10:59:19 Ultrasound BI-RADS: 3 Probably benign BI-RADS CATEGORY: (3) - 3 Ultrasound [id number] 6 month follow-up LATERALITY: (B)
--- NOTE | 2020-07-27 11:59 | Mammography Report ---
BILATERAL DIGITAL DIAGNOSTIC MAMMOGRAM 3D/2D: 07/26/2020 CLINICAL: Patient returns today to evaluate a focal asymmetry in the right breast. Patient returns to day to evaluate a focal asymmetry in the left breast. Comparison is made to exam dated: 06/14/2020 mammogram - [facility]. The tissue of both breasts is heterogeneously dense. This may lower the sensitivity of mammography. There is a 0.9 cm oval equal density focal asymmetry in the right breast at 11 o'clock posterior dept h. There is a 0.7 cm oval equal density focal asymmetry in the left breast at 8 o'clock middle depth. No other significant masses or calcifications are seen in either breast. IMPRESSION: INCOMPLETE: NEEDS ADDITIONAL IMAGING EVALUATION The 0.9 cm oval equal density focal asymmetry in the right breast at 11 o'clock posterior depth resem bles a cyst and is indeterminate. An ultrasound is recommended. The 0.7 cm oval equal density focal asymmetry in the left breast at 8 o'clock middle depth resembles a cyst and is indeterminate. An ultrasound is recommended. This exam was interpreted at Station ID: [id number]. NOTE: For mammograms, a report in lay terms will be sent to the patient. Approximately 15% of breast malignancies will not be visualized mammographically. In the management of a palpable breast mass, a negative mammogram must not discourage biopsy of a clinically suspicious lesion. Electronically Signed By: Temo Charlton acr/:07/26/2020 08:53:43 ACR BI-RADS Category 0: Incomplete 3340F PARENCHYMAL PATTERN: (D) - The breast(s) demonstrate(s) heterogeneously dense fibroglandular pat rivera. BI-RADS CATEGORY: (0) - 0 Ultrasound [id number] Immediate follow-up LATERALITY: (B)
--- NOTE | 2020-07-27 11:59 | Ultrasound Report ---
LIMITED ULTRASOUND OF LEFT BREAST: 07/26/2020 CLINICAL: Patient returns today to evaluate a focal asymmetry in the left breast. Comparison is made to exams dated: 07/26/2020 mammogram and 06/14/2020 mammogram - [facility]. Color flow and real-time ultrasound of the left breast 8 o'clock region were performed. Rogers scale images of the real-time examination were reviewed. There is a 0.8 cm x 0.4 cm x 0.8 cm oval fibroadenoma with a circumscribed margin in the left breast at 8 o'clock posterior depth. This oval fibroadenoma is hypoechoic with posterior acoustic enhanceme nt. IMPRESSION: PROBABLY BENIGN The 0.8 cm x 0.4 cm x 0.8 cm oval fibroadenoma in the left breast is probably benign. A follow-up left ultrasound in 6 months is recommended to demonstrate stability. This exam was interpreted at Station ID: [id number]. Electronically Signed By: Temo Charlton acr/:07/26/2020 11:00:16 Ultrasound BI-RADS: 3 Probably benign BI-RADS CATEGORY: (3) - 3 Ultrasound [id number] 6 month follow-up LATERALITY: (L)
== END 2020-07-26 08:15 | disposition home or self-care (01) ==
LOC: DI 08:14
PROVIDERS: ATTEND Physician Assistant Medical
DX: R92.8 Other abnormal and inconclusive findings on diagnostic imaging of breast (principal); D24.2 Benign neoplasm of left breast; D24.1 Benign neoplasm of right breast; N64.89 Other specified disorders of breast

== ENCOUNTER 2022-11-22 10:17 | Outpatient (CLI) | payer BC ==
--- NOTE | 2022-11-22 15:18 | Ultrasound Report ---
LIMITED ULTRASOUND OF RIGHT BREAST: 11/22/2022 CLINICAL: Patient returns for short term follow-up of a probably benign mass in the right breast. Comparison is made to exams dated: 10/02/2021 ultrasound, 07/26/2020 ultrasound, 10/02/2021 mammogram, and 07/26/2020 mammogram - [facility]. Color flow ultrasound of the right breast 11 o'clock region was performed on the areas of interest. Rogers scale images of the real-time examination were reviewed. There is a stable 0.8 cm x 0.7 cm x 0.4 cm oval mass with a circumscribed margin in the right breast at 11 o'clock middle depth 12 cm from the nipple. This oval mass displays a well-defined boundary an d posterior acoustic enhancement. This correlates with mammography findings. Color flow imaging dem onstrates that there is vascularity present. IMPRESSION: BENIGN There is no sonographic evidence of malignancy. The stable 0.8 cm x 0.7 cm x 0.4 cm oval mass in the right breast most likely is a fibroadenoma and i s benign. Return to annual mammogram screening schedule is recommended. This exam was interpreted at Station ID: [id number]. Electronically Signed By: Adele Foley M.D. lk/:11/22/2022 11:23:34 Ultrasound BI-RADS: 2 Benign BI-RADS CATEGORY: (2) - 2 Mammogram [id number] return to screening LATERALITY: (B)
--- NOTE | 2022-11-22 15:18 | Ultrasound Report ---
LIMITED ULTRASOUND OF LEFT BREAST: 11/22/2022 CLINICAL: Patient returns for short term follow-up of a probably benign mass in the left breast. Comparison is made to exams dated: 10/02/2021 ultrasound, 10/02/2021 mammogram, 07/26/2020 ultrasound, and 07/26/2020 mammogram - [facility]. Color flow ultrasound of the left breast 8-9 o'clock region was performed on the areas of interest. Rogers scale images of the real-time examination were reviewed. There is a stable 0.7 cm x 0.7 cm x 0.4 cm oval mass with a circumscribed margin in the left breast a t 7 o'clock middle depth 6 cm from the nipple. This oval mass is hypoechoic with a well-defined boun kristi and posterior acoustic enhancement. This correlates with mammography findings. IMPRESSION: BENIGN There is no sonographic evidence of malignancy. The stable 0.7 cm x 0.7 cm x 0.4 cm oval mass in the left breast resembles a fibroadenoma and is kayode gn. Return to annual mammogram screening schedule is recommended. This exam was interpreted at Station ID: [id number]. Electronically Signed By: Adele sotelo/:11/22/2022 11:24:34 Ultrasound BI-RADS: 2 Benign BI-RADS CATEGORY: (2) - 2 Mammogram [id number] return to screening LATERALITY: (B)
--- NOTE | 2022-11-22 15:18 | Mammography Report ---
BILATERAL DIGITAL DIAGNOSTIC MAMMOGRAM 3D/2D: 11/22/2022 CLINICAL: Patient returns for a 12 month follow up of bilateral breasts. Comparison is made to exams dated: 10/02/2021 mammogram, 07/26/2020 mammogram, and 06/14/2020 mammogram - [facility]. Both breasts are heterogeneously dense, which may obscure small masses (category c / 51-75% glandular tissue). There is a stable 0.9 cm oval equal density focal asymmetry in the right breast at 11 o'clock posteri or depth. There is a stable 0.7 cm oval equal density focal asymmetry in the left breast at 8 o'clock middle de pth. No other significant masses or calcifications are seen in either breast. IMPRESSION: INCOMPLETE: NEEDS ADDITIONAL IMAGING EVALUATION The stable 0.9 cm oval equal density focal asymmetry in the right breast at 11 o'clock posterior dept h is indeterminate. An ultrasound is recommended. The stable 0.7 cm oval equal density focal asymmetry in the left breast at 8 o'clock middle depth is indeterminate. An ultrasound is recommended. Based on the Tyrer Cuzick model (a risk assessment model) the patients lifetime risk is 11.7% and he r 10 year risk is 1.9%. According to the ACR, ACS, and NCCN guidelines, an annual breast MRI exam adore ng with mammogram is recommended if the patients lifetime risk is 20% or greater. This exam was interpreted at Station ID: [id number]. NOTE: For mammograms, a report in lay terms will be sent to the patient. Approximately 15% of breast malignancies will not be visualized mammographically. In the management of a palpable breast mass, a negative mammogram must not discourage biopsy of a clinically suspicious lesion. Electronically Signed By: Adele sotelo/:11/22/2022 10:58:34 ACR BI-RADS Category 0: Incomplete 3340F PARENCHYMAL PATTERN: (D) - The breast(s) demonstrate(s) heterogeneously dense fibroglandular parenchy ma. BI-RADS CATEGORY: (0) - 0 Ultrasound [id number] Immediate follow-up LATERALITY: (B)
== END 2022-11-22 10:18 | disposition home or self-care (01) ==
LOC: DI 10:17
PROVIDERS: ATTEND Physician Assistant
DX: R92.8 Other abnormal and inconclusive findings on diagnostic imaging of breast (principal); R92.333 Mammographic heterogeneous density, bilateral breasts